=== PATIENT | male | born 1940 | race Caucasian/White ===

== ENCOUNTER 2022-06-04 05:33 | Inpatient (IN) | payer MEDICARE ==
[~2022-06-04] VITALS: Ht 188 cm; Wt 101.3 kg
[2022-06-04] MEDS ORDERED: MEROPENEM 1 GM VIAL ONE (06:14)
[2022-06-04] MEDS ORDERED: PROTONIX20 MG PO (06:20)
[2022-06-04] MEDS ORDERED: POLYETHYLENE GL17 GM PO (06:21)
[2022-06-04] MEDS ORDERED: CRESTOR10 MG PO (06:22)
[2022-06-04] MEDS ORDERED: ASPIRIN81 MG PO (06:23)
[2022-06-04] MEDS ORDERED: HYDROXYZINE HCL10 MG PO (06:24)
[2022-06-04] MEDS ORDERED: FLOMAX0.4 MG PO (06:24)
[2022-06-04] MEDS ORDERED: CEFUROXIME250 MG PO ×2 (06:25→06:28)
[2022-06-04] MEDS ORDERED: FLUCONAZOL100 MG/50 IV (06:25)
[2022-06-04] MEDS ORDERED: ACETAMINOP325 MG/10 PO (06:26)
[2022-06-04] MEDS ORDERED: AMIODARONE HCL200 MG PO (06:26)
[2022-06-04] MEDS ORDERED: DOCUSATE SODIU100 MG PO (06:27)
[2022-06-04] MEDS ORDERED: FUROSEMIDE40 MG PO (06:28)
[2022-06-04] MEDS ORDERED: FLUCONAZOLE100 MG PO (06:29)
[2022-06-04] MEDS ORDERED: LEVOTHYROXINE75 MCG PO (06:30)
[2022-06-04] MEDS ORDERED: LACTULOSE20 GM/30 M PO (06:30)
[2022-06-04] MEDS ORDERED: METOPROLOL TART25 MG PO (06:31)
[2022-06-04] MEDS ORDERED: METFORMIN HCL500 MG PO (06:31)
[2022-06-04] MEDS ORDERED: ULTRAM50 MG PO (06:32)
[2022-06-04] MEDS ORDERED: HUMULIN R100 UNIT/2 INJ (06:34)
[2022-06-04] MEDS ORDERED: IOPAMIDOL 300MG/ML 50ML INFUS..BTL IV ONE (07:21)
[2022-06-04] MEDS ORDERED: B&O 60MG R/S 60 MG SUPP PR ONE (07:21)
[2022-06-04] MEDS ORDERED: PHENAZOPYRIDINE HCL 100 MG TAB PO PRN (08:30)
[2022-06-04] MEDS ORDERED: DIPHENHYDRAMINE HCL 25 MG CAP PO PRN (08:30)
[2022-06-04] MEDS ORDERED: ONDANSETRON HCL INJ 2MG/ML 2ML 2 MG/ML VIAL IV PRN (08:30)
[2022-06-04] MEDS ORDERED: FENTANYL CITRATE/PF 100MCG/2 ML INJ ONE ×2 (08:43→13:20)
[2022-06-04] MEDS ORDERED: MEPERIDINE HCL INJ 25 MG/ML VIAL ONE (08:55)
[2022-06-04] MEDS ORDERED: PROMETHAZINE HCL (IM) 25 MG/ML VIAL IM ONE (08:55)
[2022-06-04 08:57] LABS: BASOPHILS # (AUTO) 0.1 (0.0-0.1); BASOPHILS % 0.6 % (0.0-1.0); EOSINOPHILS # (AUTO) 0.2 (0.0-0.4); HEMATOCRIT 34.2 % (38.2-49.6); HEMOGLOBIN 10.7 g/dL (14.0-18.0); LYMPHOCYTES # (AUTO) 1.4 (1.0-3.2); LYMPHOCYTES % 16.4 % (18.0-39.1); MEAN CORPUSCULAR HEMOGLOBIN 30.2 pg (28-32); MEAN CORPUSCULAR HGB CONC 31.3 g/dL (31-35); MEAN CORPUSCULAR VOLUME 96.6 fL (81-99); MONOCYTES # (AUTO) 0.9 (0.2-0.8); MONOCYTES % 9.9 % (4.4-11.3); NEUTROPHILS # (AUTO) 6.1 (2.1-6.9); NEUTROPHILS % 70.8 % (38.7-80.0); PLATELET COUNT 181 x10e3/uL (140-360); RED BLOOD COUNT 3.54 x10e6/uL (4.3-5.7)
[2022-06-04 09:17] LABS: ANION GAP 13.2 mmol/L (8-16); CALCIUM 8.8 mg/dL (8.4-10.2); CREATININE, SERUM 1.61 mg/dL (0.72-1.25); POTASSIUM 4.2 mmol/L (3.5-5.1)
[2022-06-04] MEDS ORDERED: LIDOCAINE HCL 2% LOCAL INJ 5 ML SDV VIAL INJ ONE (11:25)
[2022-06-04] MEDS ORDERED: PROPOFOL IV EMULSION 10 MG/ML 20 ML VIAL ONE (11:25)
[2022-06-04] MEDS ORDERED: SEVOFLURANE INHAL SOLN 250 ML PEN BTL ONE (11:25)
[2022-06-04] MEDS ORDERED: POVIDONE IODINE 0.05% 0.05 % ML PO ONE (11:25)
[2022-06-04] MEDS ORDERED: ONDANSETRON HCL INJ 2MG/ML 2ML 2 MG/ML VIAL ONE (11:25)
[2022-06-04 11:34] VITALS: BP 165/77
[2022-06-04] MEDS: SODIUM CHLORIDE 0.9% 1000ML 1,000 ML IV SCH ×2 (11:56→18:43)
[2022-06-04] MEDS: DOCUSATE SODIUM 100 MG CAP PO SCH ×2 (12:10→17:04)
[2022-06-04] MEDS: FLUCONAZOLE 100 MG TAB PO SCH (12:10)
[2022-06-04] MEDS: FINASTERIDE 5 MG TAB PO SCH (12:10)
[2022-06-04 13:50] VITALS: BP 165/77
[2022-06-04] MEDS: CEFUROXIME AXETIL 250 MG TAB PO SCH ×2 (17:03→21:25)
[2022-06-04] MEDS: ACETAMINOPHEN/CODEINE 300MG - 30MG TAB PO PRN (18:49)
[2022-06-04 19:57] VITALS: BP 131/69
[2022-06-04 21:00] VITALS: BP 131/69
[2022-06-04] MEDS: TAMSULOSIN HCL 0.4 MG CAP PO SCH (21:25)
[2022-06-05] VITALS (7 sets, daily range): BP systolic 94–140; BP diastolic 66–82
[2022-06-05] MEDS: ACETAMINOPHEN/CODEINE 300MG - 30MG TAB PO PRN ×2 (03:09→04:40)
[2022-06-05] MEDS: SODIUM CHLORIDE 0.9% 1000ML 1,000 ML IV SCH ×2 (04:41→14:25)
[2022-06-05 04:53] LABS: BASOPHILS # (AUTO) 0.1 (0.0-0.1); BASOPHILS % 0.9 % (0.0-1.0); EOSINOPHILS # (AUTO) 0.1 (0.0-0.4); EOSINOPHILS % 1.6 % (0.0-6.0); HEMATOCRIT 30.7 % (38.2-49.6); HEMOGLOBIN 9.7 g/dL (14.0-18.0); LYMPHOCYTES # (AUTO) 1.1 (1.0-3.2); MEAN CORPUSCULAR HEMOGLOBIN 30.5 pg (28-32); MEAN CORPUSCULAR HGB CONC 31.6 g/dL (31-35); MEAN CORPUSCULAR VOLUME 96.5 fL (81-99); MONOCYTES # (AUTO) 0.8 (0.2-0.8); MONOCYTES % 9.7 % (4.4-11.3); NEUTROPHILS # (AUTO) 6.1 (2.1-6.9); NEUTROPHILS % 74.3 % (38.7-80.0); PLATELET COUNT 158 x10e3/uL (140-360); RED BLOOD COUNT 3.18 x10e6/uL (4.3-5.7); RED CELL DISTRIBUTION WIDTH 14.9 % (11.7-14.4)
[2022-06-05 05:23] LABS: ANION GAP 11.3 mmol/L (8-16); CALCIUM 8.3 mg/dL (8.4-10.2); CREATININE, SERUM 1.41 mg/dL (0.72-1.25); POTASSIUM 4.3 mmol/L (3.5-5.1)
[2022-06-05] MEDS: DOCUSATE SODIUM 100 MG CAP PO SCH ×2 (08:39→18:20)
[2022-06-05] MEDS: FINASTERIDE 5 MG TAB PO SCH (08:39)
[2022-06-05] MEDS: FLUCONAZOLE 100 MG TAB PO SCH (08:39)
[2022-06-05] MEDS: CEFUROXIME AXETIL 250 MG TAB PO SCH ×2 (08:49→20:47)
[2022-06-05] MEDS: HYDROXYZINE HCL 10 MG TAB PO PRN (10:57)
[2022-06-05] MEDS: ACETAMINOPHEN 325 MG/10 ML UDC PO NR ×2 (12:58→14:04)
[2022-06-05] MEDS ORDERED: DIPHENHYDRAMINE HCL 25 MG CAP PO PRN (14:30)
[2022-06-05] MEDS ORDERED: ALBUTEROL/IPRATROPIUM 3 ML NEB NEB PRN (14:30)
[2022-06-05] MEDS ORDERED: LIDOCAINE 4% PATCH TP PRN (14:30)
[2022-06-05] MEDS ORDERED: DEXTROSE 50% SYRINGE 50 ML IV PRN (14:30)
[2022-06-05] MEDS ORDERED: DOCUSATE SODIUM 100 MG CAP PO PRN (14:30)
[2022-06-05] MEDS: TAMSULOSIN HCL 0.4 MG CAP PO SCH (20:47)
[2022-06-05] MEDS ORDERED: MELATONIN 5 MG TABLET PO PRN (21:00)
[2022-06-05] MEDS: TRAMADOL HCL 50 MG TAB PO SCH (23:02)
[2022-06-06] VITALS (7 sets, daily range): BP systolic 109–124; BP diastolic 52–73
[2022-06-06] MEDS: SODIUM CHLORIDE 0.9% 1000ML 1,000 ML IV SCH ×3 (01:41→18:36)
[2022-06-06 05:17] LABS: BASOPHILS # (AUTO) 0.1 (0.0-0.1); EOSINOPHILS # (AUTO) 0.2 (0.0-0.4); EOSINOPHILS % 2.2 % (0.0-6.0); HEMATOCRIT 32.6 % (38.2-49.6); HEMOGLOBIN 10.1 g/dL (14.0-18.0); LYMPHOCYTES # (AUTO) 1.5 (1.0-3.2); LYMPHOCYTES % 18.6 % (18.0-39.1); MEAN CORPUSCULAR HEMOGLOBIN 30.4 pg (28-32); MEAN CORPUSCULAR VOLUME 98.2 fL (81-99); MONOCYTES # (AUTO) 0.8 (0.2-0.8); MONOCYTES % 10.7 % (4.4-11.3); NEUTROPHILS # (AUTO) 5.3 (2.1-6.9); PLATELET COUNT 157 x10e3/uL (140-360); RED BLOOD COUNT 3.32 x10e6/uL (4.3-5.7); RED CELL DISTRIBUTION WIDTH 14.9 % (11.7-14.4)
[2022-06-06] MEDS: TRAMADOL HCL 50 MG TAB PO SCH (05:23)
[2022-06-06] MEDS: LEVOTHYROXINE SODIUM 75 MCG TAB PO SCH ×2 (05:23→08:30)
[2022-06-06] MEDS: HYDROXYZINE HCL 10 MG TAB PO PRN ×3 (05:29→22:22)
[2022-06-06 05:40] LABS: ANION GAP 13.1 mmol/L (8-16); CALCIUM 9.1 mg/dL (8.4-10.2); CREATININE, SERUM 1.33 mg/dL (0.72-1.25); POTASSIUM 4.1 mmol/L (3.5-5.1)
[2022-06-06] MEDS: FLUCONAZOLE 100 MG TAB PO SCH (08:30)
[2022-06-06] MEDS: DOCUSATE SODIUM 100 MG CAP PO SCH ×2 (08:30→18:07)
[2022-06-06] MEDS: SOLIFENACIN SUCCINATE 5 MG TAB PO SCH (08:31)
[2022-06-06] MEDS: CEFUROXIME AXETIL 250 MG TAB PO SCH ×2 (08:31→21:05)
[2022-06-06] MEDS: FINASTERIDE 5 MG TAB PO SCH (08:31)
[2022-06-06] MEDS: B&O 60MG R/S 60 MG SUPP PR SCH (08:32)
[2022-06-06] MEDS: METOPROLOL TARTRATE 25 MG TAB PO SCH ×2 (08:32→18:07)
[2022-06-06] MEDS ORDERED: B&O 60MG R/S 60 MG SUPP PR ONE (09:00)
[2022-06-06] MEDS ORDERED: TAMSULOSIN HCL 0.4 MG CAP PO SCH (09:00)
[2022-06-06] MEDS: AMIODARONE HCL 200 MG TAB PO SCH (09:30)
[2022-06-06] MEDS: LACTULOSE SYRUP 20 GM/30 ML UDC PO SCH ×2 (09:30→13:54)
[2022-06-06] MEDS ORDERED: ACETAMINOPHEN 325 MG TAB PO SCH (09:30)
[2022-06-06] MEDS ORDERED: TRAMADOL HCL 50 MG TAB PO PRN (09:30)
[2022-06-06] MEDS: FUROSEMIDE 20 MG TAB PO SCH (10:00)
[2022-06-06] MEDS: PANTOPRAZOLE SOD 40 MG TABEC PO SCH (10:08)
[2022-06-06] MEDS: ACETAMINOPHEN 325 MG TAB PO SCH ×3 (12:21→21:07)
[2022-06-06] MEDS ORDERED: ONDANSETRON HCL 4 MG ORAL DISINTEGRATING TAB SL PRN (13:30)
[2022-06-06] MEDS: TAMSULOSIN HCL 0.4 MG CAP PO SCH (21:05)
[2022-06-06] MEDS: SIMVASTATIN 20 MG TAB PO SCH (21:05)
[2022-06-07] VITALS (9 sets, daily range): BP systolic 96–120; BP diastolic 60–73
[2022-06-07] MEDS: ACETAMINOPHEN 325 MG TAB PO SCH ×4 (04:49→23:00)
[2022-06-07] MEDS: LEVOTHYROXINE SODIUM 75 MCG TAB PO SCH (04:50)
[2022-06-07 05:35] LABS: BASOPHILS # (AUTO) 0.1 (0.0-0.1); EOSINOPHILS # (AUTO) 0.2 (0.0-0.4); EOSINOPHILS % 2.4 % (0.0-6.0); HEMATOCRIT 27.5 % (38.2-49.6); LYMPHOCYTES # (AUTO) 1.4 (1.0-3.2); LYMPHOCYTES % 22.6 % (18.0-39.1); MEAN CORPUSCULAR HEMOGLOBIN 30.7 pg (28-32); MEAN CORPUSCULAR HGB CONC 32.7 g/dL (31-35); MEAN CORPUSCULAR VOLUME 93.9 fL (81-99); MONOCYTES # (AUTO) 0.8 (0.2-0.8); MONOCYTES % 12.6 % (4.4-11.3); NEUTROPHILS # (AUTO) 3.8 (2.1-6.9); NEUTROPHILS % 60.8 % (38.7-80.0); PLATELET COUNT 154 x10e3/uL (140-360); RED BLOOD COUNT 2.93 x10e6/uL (4.3-5.7); RED CELL DISTRIBUTION WIDTH 15.1 % (11.7-14.4)
[2022-06-07] MEDS: HYDROXYZINE HCL 10 MG TAB PO PRN ×2 (06:02→20:18)
[2022-06-07 06:03] LABS: ANION GAP 13.9 mmol/L (8-16); CALCIUM 8.4 mg/dL (8.4-10.2); CREATININE, SERUM 1.25 mg/dL (0.72-1.25); POTASSIUM 3.9 mmol/L (3.5-5.1)
[2022-06-07] MEDS: PANTOPRAZOLE SOD 40 MG TABEC PO SCH (09:15)
[2022-06-07] MEDS: CEFUROXIME AXETIL 250 MG TAB PO SCH ×2 (09:15→20:17)
[2022-06-07] MEDS: AMIODARONE HCL 200 MG TAB PO SCH (09:16)
[2022-06-07] MEDS: FUROSEMIDE 20 MG TAB PO SCH (09:16)
[2022-06-07] MEDS: DOCUSATE SODIUM 100 MG CAP PO SCH ×2 (09:16→17:46)
[2022-06-07] MEDS: LACTULOSE SYRUP 20 GM/30 ML UDC PO SCH ×2 (09:16→17:46)
[2022-06-07] MEDS: FLUCONAZOLE 100 MG TAB PO SCH (09:16)
[2022-06-07] MEDS: FINASTERIDE 5 MG TAB PO SCH (09:17)
[2022-06-07] MEDS: SOLIFENACIN SUCCINATE 5 MG TAB PO SCH (09:17)
[2022-06-07] MEDS: METOPROLOL TARTRATE 25 MG TAB PO SCH ×2 (09:17→17:46)
[2022-06-07] MEDS: ACETAMINOPHEN/CODEINE 300MG - 30MG TAB PO PRN (10:18)
[2022-06-07] MEDS ORDERED: FUROSEMIDE INJ 10 MG/ML 2 ML VIAL IV ONE (11:45)
[2022-06-07] MEDS: B&O 60MG R/S 60 MG SUPP PR SCH (12:03)
[2022-06-07] MEDS: TAMSULOSIN HCL 0.4 MG CAP PO SCH (20:17)
[2022-06-07] MEDS: SIMVASTATIN 20 MG TAB PO SCH (20:17)
[2022-06-08 04:00] VITALS: BP 117/74
[2022-06-08] MEDS: ACETAMINOPHEN 325 MG TAB PO SCH ×4 (05:11→23:00)
[2022-06-08] MEDS: LEVOTHYROXINE SODIUM 75 MCG TAB PO SCH (05:11)
[2022-06-08 05:49] LABS: BASOPHILS # (AUTO) 0.1 (0.0-0.1); BASOPHILS % 0.5 % (0.0-1.0); EOSINOPHILS # (AUTO) 0.1 (0.0-0.4); EOSINOPHILS % 0.8 % (0.0-6.0); HEMATOCRIT 29.7 % (38.2-49.6); HEMOGLOBIN 9.9 g/dL (14.0-18.0); LYMPHOCYTES # (AUTO) 1.1 (1.0-3.2); LYMPHOCYTES % 10.2 % (18.0-39.1); MEAN CORPUSCULAR HEMOGLOBIN 30.4 pg (28-32); MEAN CORPUSCULAR HGB CONC 33.3 g/dL (31-35); MEAN CORPUSCULAR VOLUME 91.1 fL (81-99); MONOCYTES # (AUTO) 1.1 (0.2-0.8); MONOCYTES % 9.7 % (4.4-11.3); NEUTROPHILS # (AUTO) 8.6 (2.1-6.9); NEUTROPHILS % 78.3 % (38.7-80.0); PLATELET COUNT 180 x10e3/uL (140-360); RED BLOOD COUNT 3.26 x10e6/uL (4.3-5.7); RED CELL DISTRIBUTION WIDTH 14.7 % (11.7-14.4)
[2022-06-08 06:10] LABS: ANION GAP 14.3 mmol/L (8-16); CALCIUM 8.7 mg/dL (8.4-10.2); CREATININE, SERUM 1.43 mg/dL (0.72-1.25); POTASSIUM 4.3 mmol/L (3.5-5.1)
[2022-06-08 07:57] VITALS: BP 101/52
[2022-06-08 08:44] VITALS: BP 101/52
[2022-06-08] MEDS: PANTOPRAZOLE SOD 40 MG TABEC PO SCH (09:26)
[2022-06-08] MEDS: LACTULOSE SYRUP 20 GM/30 ML UDC PO SCH ×2 (09:27→16:47)
[2022-06-08] MEDS: CEFUROXIME AXETIL 250 MG TAB PO SCH ×2 (09:27→21:00)
[2022-06-08] MEDS: DOCUSATE SODIUM 100 MG CAP PO SCH ×2 (09:27→16:47)
[2022-06-08] MEDS: FLUCONAZOLE 100 MG TAB PO SCH (09:27)
[2022-06-08] MEDS: FUROSEMIDE 20 MG TAB PO SCH (09:27)
[2022-06-08] MEDS: AMIODARONE HCL 200 MG TAB PO SCH (09:27)
[2022-06-08] MEDS: METOPROLOL TARTRATE 25 MG TAB PO SCH ×2 (09:28→16:47)
[2022-06-08] MEDS: B&O 60MG R/S 60 MG SUPP PR SCH (09:28)
[2022-06-08] MEDS: SOLIFENACIN SUCCINATE 5 MG TAB PO SCH (09:28)
[2022-06-08] MEDS: BALSAM PERU/CASTOR OIL 60 GM OINT...G. TP SCH (09:28)
[2022-06-08] MEDS: FINASTERIDE 5 MG TAB PO SCH (09:28)
[2022-06-08 11:57] VITALS: BP 114/68
[2022-06-08] MEDS: HYDROXYZINE HCL 10 MG TAB PO PRN (12:20)
[2022-06-08 16:37] VITALS: BP 114/52
[2022-06-08 20:00] VITALS: BP 96/56
[2022-06-08] MEDS: SIMVASTATIN 20 MG TAB PO SCH (21:00)
[2022-06-08] MEDS: TAMSULOSIN HCL 0.4 MG CAP PO SCH (21:00)
[2022-06-09] VITALS (8 sets, daily range): BP systolic 91–114; BP diastolic 59–72
[2022-06-09] MEDS: ACETAMINOPHEN 325 MG TAB PO SCH ×4 (05:00→20:38)
[2022-06-09] MEDS: LEVOTHYROXINE SODIUM 75 MCG TAB PO SCH (06:00)
[2022-06-09] MEDS: METOPROLOL TARTRATE 25 MG TAB PO SCH ×2 (09:00→17:12)
[2022-06-09] MEDS: FUROSEMIDE 20 MG TAB PO SCH (09:00)
[2022-06-09] MEDS: B&O 60MG R/S 60 MG SUPP PR SCH (09:00)
[2022-06-09] MEDS: FINASTERIDE 5 MG TAB PO SCH (09:56)
[2022-06-09] MEDS: PANTOPRAZOLE SOD 40 MG TABEC PO SCH (09:56)
[2022-06-09] MEDS: CEFUROXIME AXETIL 250 MG TAB PO SCH ×2 (09:56→20:38)
[2022-06-09] MEDS: LACTULOSE SYRUP 20 GM/30 ML UDC PO SCH ×2 (09:56→17:10)
[2022-06-09] MEDS: AMIODARONE HCL 200 MG TAB PO SCH (09:56)
[2022-06-09] MEDS: FLUCONAZOLE 100 MG TAB PO SCH (09:56)
[2022-06-09] MEDS: SOLIFENACIN SUCCINATE 5 MG TAB PO SCH (09:57)
[2022-06-09] MEDS: DOCUSATE SODIUM 100 MG CAP PO SCH ×2 (09:57→17:31)
[2022-06-09] MEDS: BALSAM PERU/CASTOR OIL 60 GM OINT...G. TP SCH (11:43)
[2022-06-09] MEDS: TAMSULOSIN HCL 0.4 MG CAP PO SCH (20:38)
[2022-06-09] MEDS: SIMVASTATIN 20 MG TAB PO SCH (20:38)
[2022-06-10] VITALS: BP 98/60
[2022-06-10 04:00] VITALS: BP 127/69
[2022-06-10] MEDS: LEVOTHYROXINE SODIUM 75 MCG TAB PO SCH (06:08)
[2022-06-10 06:09] LABS: HEMATOCRIT 29.7 % (38.2-49.6); HEMOGLOBIN 9.4 g/dL (14.0-18.0)
[2022-06-10] MEDS: ACETAMINOPHEN 325 MG TAB PO SCH ×2 (06:10→12:00)
[2022-06-10 06:33] LABS: ANION GAP 12.7 mmol/L (8-16); CALCIUM 8.7 mg/dL (8.4-10.2); CREATININE, SERUM 1.37 mg/dL (0.72-1.25); POTASSIUM 3.7 mmol/L (3.5-5.1)
[2022-06-10 08:26] VITALS: BP 128/72
[2022-06-10 08:45] VITALS: BP 128/72
[2022-06-10] MEDS: B&O 60MG R/S 60 MG SUPP PR SCH (09:00)
[2022-06-10] MEDS: LACTULOSE SYRUP 20 GM/30 ML UDC PO SCH (09:14)
[2022-06-10] MEDS: CEFUROXIME AXETIL 250 MG TAB PO SCH (09:14)
[2022-06-10] MEDS: AMIODARONE HCL 200 MG TAB PO SCH (09:15)
[2022-06-10] MEDS: FINASTERIDE 5 MG TAB PO SCH (09:15)
[2022-06-10] MEDS: DOCUSATE SODIUM 100 MG CAP PO SCH (09:15)
[2022-06-10] MEDS: METOPROLOL TARTRATE 25 MG TAB PO SCH (09:17)
[2022-06-10 11:35] VITALS: BP 103/62
[2022-06-10] MEDS: PANTOPRAZOLE SOD 40 MG TABEC PO SCH (11:57)
[2022-06-10] MEDS: FLUCONAZOLE 100 MG TAB PO SCH (12:00)
[2022-06-10] MEDS: FUROSEMIDE 20 MG TAB PO SCH (12:25)
[2022-06-10] MEDS: SOLIFENACIN SUCCINATE 5 MG TAB PO SCH (12:28)
[2022-06-10] MEDS: BALSAM PERU/CASTOR OIL 60 GM OINT...G. TP SCH (12:38)
[2022-06-10] MEDS ORDERED: FINASTERIDE5 MG PO (13:34)
[2022-06-10 16:47] VITALS: BP 117/62
== END 2022-06-10 18:18 | disposition home health service (06) | DRG 669 ==
LOC: OR 05:33 → PACU V 08:28 → MED/SURG2 10:55
PROVIDERS: ADMIT Internal Medicine; ATTEND Internal Medicine
PROC: 0T7D8ZZ Dilation of Urethra, Via Natural or Artificial Opening Endoscopic (ICD-10-PCS; 2022-06-04)
PROC: 0T5B8ZZ Destruction of Bladder, Via Natural or Artificial Opening Endoscopic (ICD-10-PCS; principal; 2022-06-04 07:26)
PROC: BT141ZZ Fluoroscopy of Kidneys, Ureters and Bladder using Low Osmolar Contrast (ICD-10-PCS; 2022-06-04 07:26)
DX: C67.1 Malignant neoplasm of dome of bladder (principal); B37.49 Other urogenital candidiasis; I48.91 Unspecified atrial fibrillation; E11.9 Type 2 diabetes mellitus without complications; E03.9 Hypothyroidism, unspecified; I10 Essential (primary) hypertension; R31.0 Gross hematuria; N32.3 Diverticulum of bladder; N35.912 Unspecified bulbous urethral stricture, male; E78.5 Hyperlipidemia, unspecified; N40.0 Benign prostatic hyperplasia without lower urinary tract symptoms; Z88.1 Allergy status to other antibiotic agents; Z88.0 Allergy status to penicillin; Z79.4 Long term (current) use of insulin; Z79.84 Long term (current) use of oral hypoglycemic drugs; Z83.3 Family history of diabetes mellitus; Z82.49 Family history of ischemic heart disease and other diseases of the circulatory system; F03.90 Unspecified dementia, unspecified severity, without behavioral disturbance, psychotic disturbance, mood disturbance, and anxiety; I25.10 Atherosclerotic heart disease of native coronary artery without angina pectoris; Z86.16 Personal history of COVID-19; D64.9 Anemia, unspecified
CPT/HCPCS: 36415; 71045; 74420; 80048; 82948; 83735; 85014; 85018; 85025; 88304; 88307; 94799; 99251; C1758; J1940; J2001; J2175; J2185; J2405; J2550; J3010; J3410; J7030